=== PATIENT | male | born 1985 | race Caucasian/White ===

== ENCOUNTER 2017-04-17 03:04 | Emergency (ER) | payer SELFPAY ==
[~2017-04-17] VITALS: Ht 177.8 cm; Wt 78.4 kg
[~2017-04-17 03:04] MED LIST: CEPH500C3 PO
[2017-04-17 03:15] VITALS: BP 149/87; PULSE 97; RESP 16; TEMP 97.8; O2SAT 100
[2017-04-17 03:20] VITALS: BP 149/82; PULSE 97; RESP 16; TEMP 97.8; O2SAT 100
[2017-04-17] MEDS ORDERED: TETANUS/DIPHTHERIA TOXOID ADULT 0.5 ML VIAL IM ONE (03:45)
[2017-04-17] MEDS ORDERED: PROPARACAINE HCL 0.5% OPHT SOLN 15 ML BTL LEFT EYE ONE (03:45)
[2017-04-17] MEDS ORDERED: ERYTHROMYCIN 0.5% OPTH OINT 3.5 GM TUBO LEFT EYE ONE (04:00)
--- NOTE | 2017-04-17 04:02 | PD ---
HPI Chief Complaint: Eye Problems/Injury Time Seen by Provider: 03:43 Travel History International Travel<30 days: No Contact w/Intl Traveler<30days: No Traveled to known affect area: No History of Present Illness HPI 31-year-old male presents to the emergency department for 2-3 days of left I irritation. Patient is a contact lens wearer. Patient denies any known foreign body exposure to the left eye. Patient states wearing his contact lens seems to make his symptoms worse. Patient is not certain when his last tetanus shot was. Patient denies any allergies to medications. Patient rates his discomfort as moderate to severe. Patient did take 600 mg of ibuprofen prior to arrival to the emergency department. Patient has not seen his floral designer salesperson/ candle cutter and a year and does goes to the [facility] to have his contact lens prescription refilled. Patient states that he does not have eyeglasses. Patient states that he is currently wearing his last pair of contact lenses. Patient states that the irritation of the left eye does affect his vision. PFSH Past Medical History Narrative Medical Anxiety; tobacco use, alcohol use: Nursing notes reviewed Blood Disorders: No Anxiety: Yes Depression: No Cancer: No Cardiovascular Problems: No Diminished Hearing: No Endocrine: No Gastrointestinal Disorders: No Genitourinary: No Immune Disorder: No Musculoskeletal: No Neurologic: No Psychiatric: No Reproductive: No Respiratory: No Immunizations Current: Yes Influenza Vaccination: No Past Surgical History AICD: No Arteriovenous Shunt: No Insulin Pump: No Joint Replacement: No Pacemaker: No Other Surgery: No Social History Alcohol Use: Yes (24 beers a week) Tobacco Use: Yes (0.5PPD) Substance Use: No (denies) Allergies-Medications (Allergen,Severity, Reaction): Coded Allergies: No Known Allergies (Verified , 07/10/15) Reported Meds & Prescriptions Reported Meds & Active Scripts Active Keflex (Cephalexin Monohydrate) 500 Mg Cap 500 Mg PO Q8 Review of Systems Except as stated in HPI: all other systems reviewed are Neg Physical Exam Narrative GENERAL: Well-developed well-nourished male in no acute distress no respiratory distress; GCS 15 SKIN: Warm and dry. HEAD: Normocephalic. EYES: No scleral icterus. No injection or drainage. Left eye with injection. Left contact lens removed. No foreign body is identified. Fluorescein stain performed which shows mid cornea corneal abrasion without ulceration and no dendritic changes. Visual acuity with contact lenses right eye 20/25 left eye 20/50 both eyes 20/25. No upper or lower lid edema. NECK: Supple, trachea midline. No JVD or lymphadenopathy. Data Data Last Documented VS Vital Signs Date Time Temp Pulse Resp B/P (MAP) Pulse Ox O2 Delivery O2 Flow Rate FiO2 04/17/17 03:20 97.8 97 16 149/82 (104) 100 Orders Orders Proparacaine 0.5% Opth Soln (Alcaine 0.5 (04/17/17 03:45) Tetanus/Diphtheria Tox Adult (Tetanus/Di (04/17/17 03:45) Erythromycin 0.5% Opth Oint (Ilotycin 0. (04/17/17 04:00) Ed Discharge Order (04/17/17 03:52) Mandatory Outpatient Referral (04/17/17 03:53) MDM Medical Decision Making Medical Screen Exam Complete: Yes Emergency Medical Condition: Yes Medical Record Reviewed: Yes Differential Diagnosis Corneal abrasion, corneal ulceration, herpes virus, conjunctivitis, iritis, retained foreign body Narrative Course Fluorescein stain performed with uptake of stain in the left mid cornea no dendritic changes no ulcerations identified patient given drop of proparacaine ophthalmic drops and OINTMENT was administered to the left eye and tetanus status updated. Patient is encouraged to follow-up with candle cutter provided name of Dr. Alejandra and mandatory referral. Patient told not to put his left contact lens into his left eye again. Patient does not wear contact lens in the left eye until corneal abrasion has resolved. Diagnosis Primary Impression: Corneal abrasion, left Qualified Codes: S05.02XA - Injury of conjunctiva and corneal abrasion without foreign body, left eye, initial encounter Referrals: Local Company Refrigerated Truck Driver 1 day Manager [employer] candle cutter Dr Alejandra --call office in the AM to schedule appointment Departure Forms: Tests/Procedures, Work Release Special Instructions: no work x 1 day Additional Instructions: Do not wear contact lens in the left eye May use sunglasses to keep you from rubbing the left eye Apply eye ointment as prescribed Follow-up with candle cutter times one day; the On-call candle cutter is Dr.N Alejandra May take ibuprofen/Advil/Motrin 800 mg as often as every 8 hours OR 600 mg as often as every 6 hours for pain associated with inflammation May apply cool compresses to the eye to remove gently any drainage. Return to the emergency department for any concerns or change in condition. No work times one day Med/Other Pt SpecificInfo: Prescription(s) given Disposition: 01 DISCHARGE HOME Condition: Stable Laura Villegas MD Apr 17, 2017 04:02
== END 2017-04-17 04:31 | disposition home or self-care (01) ==
LOC: PHED 03:04
DX: S05.02XA Injury of conjunctiva and corneal abrasion without foreign body, left eye, initial encounter (principal); F17.210 Nicotine dependence, cigarettes, uncomplicated; Z72.89 Other problems related to lifestyle; Z23 Encounter for immunization
CPT/HCPCS: 90471; 90714

== ENCOUNTER 2017-06-21 10:07 | Emergency (ER) | payer SELFPAY ==
[~2017-06-21] VITALS: Ht 177.8 cm; Wt 65.0 kg
[2017-06-21 10:12] VITALS: BP 141/87; PULSE 109; RESP 18; TEMP 97.8; O2SAT 100
[2017-06-21] MEDS ORDERED: SODIUM CHLORIDE 0.9% FLUSH 10 ML FLUSH IV FLUSH PRN (10:30)
--- NOTE | 2017-06-21 10:48 | PD ---
HPI Chief Complaint: OD/ Ingestion Time Seen by Provider: 10:34 Travel History International Travel<30 days: No Contact w/Intl Traveler<30days: No Traveled to known affect area: No History of Present Illness HPI 31 y/o male presents after he was found unresponsive and given Narcan and now is awake and alert. He states yesterday morning he injected Dilaudid, meth and took Xanax. He states he does not remember going unresponsive. He states he was not trying to hurt himself. He states before this he was clean and sober for [address] He denies any current active complaints at this time. History is limited as he does not recall prior event PFSH Past Medical History Blood Disorders: No Anxiety: Yes Depression: No Cancer: No Cardiovascular Problems: No Diabetes: No Diminished Hearing: No Endocrine: No Gastrointestinal Disorders: No Genitourinary: No Immune Disorder: No Musculoskeletal: No Neurologic: No Psychiatric: No Reproductive: No Respiratory: No Immunizations Current: Yes Tetanus Vaccination: < 5 Years Influenza Vaccination: No Past Surgical History Surgical History: No Previous Surgery AICD: No Arteriovenous Shunt: No Insulin Pump: No Joint Replacement: No Pacemaker: No Other Surgery: No Social History Alcohol Use: Yes (24 beers a week) Tobacco Use: Yes (1 ) Substance Use: Yes (DILAUDID AND SUBOXONE) Allergies-Medications (Allergen,Severity, Reaction): Coded Allergies: No Known Allergies (Verified Adverse Reaction, Unknown, 06/21/17) Reported Meds & Prescriptions Reported Meds & Active Scripts Active No Active Prescriptions or Reported Medications Review of Systems Except as stated in HPI: all other systems reviewed are Neg Physical Exam Narrative GENERAL: 31-year-old male in no apparent distress SKIN: Focused skin assessment warm/dry. HEAD: Atraumatic. Normocephalic. EYES: Pupils equal and round. No scleral icterus. No injection or drainage. ENT: No nasal bleeding or discharge. Mucous membranes pink and moist. NECK: Trachea midline. No JVD. CARDIOVASCULAR: Regular rate and rhythm. No murmur appreciated. RESPIRATORY: No accessory muscle use. Clear to auscultation. Breath sounds equal bilaterally. GASTROINTESTINAL: Abdomen soft, non-tender, nondistended MUSCULOSKELETAL: No obvious deformities. No clubbing. No cyanosis. No edema. no sign of cellulitis or abscess to extremities NEUROLOGICAL: Awake and alert. No obvious cranial nerve deficits. Motor grossly within normal limits. Normal speech. PSYCHIATRIC: Appropriate mood and affect; insight and judgment normal. Data Data Last Documented VS Vital Signs Date Time Temp Pulse Resp B/P (MAP) Pulse Ox O2 Delivery O2 Flow Rate FiO2 06/21/17 14:11 88 14 125/67 (86) 97 06/21/17 12:52 Room Air 06/21/17 10:12 97.8 Orders Orders Complete Blood Count With Diff (06/21/17 10:30) Comprehensive Metabolic Panel (06/21/17 10:30) Ecg Monitoring (06/21/17 10:30) Iv Access Insert/Monitor (06/21/17 10:30) Oximetry (06/21/17 10:30) Sodium Chloride 0.9% Flush (Ns Flush) (06/21/17 10:30) Drug Screen, Random Urine (06/21/17 10:30) Alcohol (Ethanol) (06/21/17 10:30) Psych Screen (06/21/17 13:22) Sodium Chlor 0.9% 1000 Ml Inj (Ns 1000 M (06/21/17 13:30) Labs Laboratory Tests Test 06/21/17 10:51 06/21/17 11:09 White Blood Count 8.6 TH/MM3 Red Blood Count 4.14 MIL/MM3 Hemoglobin 12.8 GM/DL Hematocrit 37.2 % Mean Corpuscular Volume 89.8 FL Mean Corpuscular Hemoglobin 30.9 PG Mean Corpuscular Hemoglobin Concent 34.4 % Red Cell Distribution Width 13.0 % Platelet Count 307 TH/MM3 Mean Platelet Volume 7.4 FL Neutrophils (%) (Auto) 54.6 % Lymphocytes (%) (Auto) 31.5 % Monocytes (%) (Auto) 11.0 % Eosinophils (%) (Auto) 2.0 % Basophils (%) (Auto) 0.9 % Neutrophils # (Auto) 4.7 TH/MM3 Lymphocytes # (Auto) 2.7 TH/MM3 Monocytes # (Auto) 0.9 TH/MM3 Eosinophils # (Auto) 0.2 TH/MM3 Basophils # (Auto) 0.1 TH/MM3 CBC Comment DIFF FINAL Differential Comment Blood Urea Nitrogen 11 MG/DL Creatinine 0.75 MG/DL Random Glucose 83 MG/DL Total Protein 6.6 GM/DL Albumin 3.5 GM/DL Calcium Level 8.6 MG/DL Alkaline Phosphatase 110 U/L Aspartate Amino Transf (AST/SGOT) 18 U/L Alanine Aminotransferase (ALT/SGPT) 21 U/L Total Bilirubin 0.4 MG/DL Sodium Level 139 MEQ/L Potassium Level 3.3 MEQ/L Chloride Level 106 MEQ/L Carbon Dioxide Level 25.5 MEQ/L Anion Gap 8 MEQ/L Estimat Glomerular Filtration Rate 123 ML/MIN Ethyl Alcohol Level LESS THAN 3 MG/DL Urine Opiates Screen NEG Urine Barbiturates Screen NEG Urine Amphetamines Screen POS Urine Benzodiazepines Screen POS Urine Cocaine Screen NEG Urine Cannabinoids Screen NEG MDM Medical Decision Making Medical Screen Exam Complete: Yes Emergency Medical Condition: Yes Medical Record Reviewed: Yes (Past history confirmed) Interpretation(s) CBC & BMP Diagram 06/21/17 10:51 Total Protein 6.6, Albumin 3.5, Calcium Level 8.6, Alkaline Phosphatase 110, Aspartate Amino Transf (AST/SGOT) 18, Alanine Aminotransferase (ALT/SGPT) 21, Total Bilirubin 0.4 Differential Diagnosis Overdose, co-ingestion, electrolyte Narrative Course We will check blood work and monitor 1320 heart rate 115, will dose with ivf, patient states history of SI but none today, agrees to voluntarily talk with our psychiatry team heart rate improved after ivf, medically cleared for psychiatry team to talk with patient Diagnosis Primary Impression: Overdose Qualified Codes: T50.901A - Poisoning by unspecified drugs, medicaments and biological substances, accidental (unintentional), initial encounter Scripts No Active Prescriptions or Reported Meds Micaela Hager MD Jun 21, 2017 10:48
[2017-06-21 11:21] LABS: AUTOMATED NEUTROPHIL # 4.7 TH/MM3 (1.8-7.7); BASOPHIL # 0.1 TH/MM3 (0-0.2); BASOPHIL % 0.9 % (0.0-2.0); EOSINOPHIL # 0.2 TH/MM3 (0-0.4); HEMATOCRIT 37.2 % (39.0-51.0); HEMOGLOBIN 12.8 GM/DL (13.0-17.0); LYMPH % 31.5 % (9.0-44.0); LYMPHOCYTE # 2.7 TH/MM3 (1.0-4.8); MEAN CELL VOLUME 89.8 FL (80.0-100.0); MEAN CORPUSCULAR HEMOGLOBIN 30.9 PG (27.0-34.0); MEAN CORPUSCULAR HGB CONC 34.4 % (32.0-36.0); MEAN PLATELET VOLUME 7.4 FL (7.0-11.0); MONOCYTE # 0.9 TH/MM3 (0-0.9); NEUT % 54.6 % (16.0-70.0); PLATELET COUNT 307 TH/MM3 (150-450); RED BLOOD COUNT 4.14 MIL/MM3 (4.50-5.90); WHITE BLOOD COUNT 8.6 TH/MM3 (4.0-11.0)
[2017-06-21 11:36] LABS: ALBUMIN 3.5 GM/DL (3.4-5.0); ALT (GPT) 21 U/L (12-78); AST (GOT) 18 U/L (15-37); BICARBONATE 25.5 MEQ/L (21.0-32.0); BLOOD UREA NITROGEN 11 MG/DL (7-18); CALCIUM 8.6 MG/DL (8.5-10.1); CHLORIDE 106 MEQ/L (98-107); CREATININE 0.75 MG/DL (0.60-1.30); GLOMERULAR FILTRATION RATE 123 ML/MIN (>89); GLUCOSE,RANDOM 83 MG/DL (74-106); SODIUM (NA) 139 MEQ/L (136-145)
[2017-06-21 11:37] LABS: ALKALINE PHOSPHATASE 110 U/L (45-117); TOTAL BILIRUBIN ADULT 0.4 MG/DL (0.2-1.0); TOTAL PROTEIN 6.6 GM/DL (6.4-8.2)
[2017-06-21 12:52] VITALS: BP 129/87; PULSE 113; RESP 21; O2SAT 98
[2017-06-21] MEDS ORDERED: SODIUM CHLOR 0.9% 1000 ML INJ 1,000 ML IV ONE (13:30)
[2017-06-21 14:11] VITALS: BP 125/67; PULSE 88; RESP 14; O2SAT 97
--- NOTE | 2017-06-21 15:30 | PD ---
History of Present Illness Chief Complaint: Substance abuse Time Seen by Provider: 15:05 Travel History International Travel<30 Days: No Contact w/Intl Traveler<30days: No Known affected area: No Legal Status Legal Status: Voluntary History of Present Illness: Mr. Bennett is a 31 year old single, male who was brought into the emergency department for a drug overdose. He reports that he had injected methadone, Xanax and Dilaudid yesterday. Psychiatric examination was requested by the ED physician. He denies thoughts of self-harm, homicidal ideation, auditory or visual hallucinations, and does not appear delusional. Patient has been seen in this facility previously for substance abuse. Reviewed electronic medical record and discussed case with staff. Patient was examined in the ED main. Patient's awake alert and oriented. Ambulating without difficulty. Speech is clear and logical. He is a slender white male with multiple tattoos who is well groomed. Patient is future oriented as he states that he "needs to get to work". He reports history of IV drug use. Advises that he completed drug court 3 months ago. Denies history of mental illness. Denies previous suicide attempts. [facility] Past Medical History Narrative Medical Medically evaluated by ED. Blood Disorders: No Anxiety: Yes Depression: No Cancer: No Cardiovascular Problems: No Diabetes: No Diminished Hearing: No Endocrine: No Gastrointestinal Disorders: No Genitourinary: No Immune Disorder: No Musculoskeletal: No Neurologic: No Psychiatric: No Reproductive: No Respiratory: No Immunizations Current: Yes Tetanus Vaccination: < 5 Years Influenza Vaccination: No Past Surgical History Surgical History: No Previous Surgery AICD: No Arteriovenous Shunt: No Insulin Pump: No Joint Replacement: No Pacemaker: No Other Surgery: No Psychiatric History Psychiatric History Denies inpatient admission and outpatient treatment for mental health issues. History of Inpatient Treatment: No Guns or firearms in home: No Social History Works at a local [employer] States that at this time he is residing with different friends. Hx Alcohol Use: Yes (24 beers a week) Hx Tobacco Use: Yes (1 ) Hx Substance Use: Yes (DILAUDID AND SUBOXONE) Substance Use Type: Amphetamines-Stimulants, Prescription Medications Hx of Substance Use Treatment: Yes Family Psychiatric History Denies familial mental illness or suicide attempts. Allergies-Medications (Allergen,Severity, Reaction): Coded Allergies: No Known Allergies (Verified Adverse Reaction, Unknown, 06/21/17) Reported Meds & Prescriptions Reported Meds & Active Scripts Active No Active Prescriptions or Reported Medications Mental Status Examination Appearance: Appropriate, Well dressed/well groomed Consciousness: Alert Orientation: x4 Motor Activity: Normal gait Speech: Unremarkable Language: Adequate Fund of Knowledge: Adequate Attention and Concentration: Adequate Memory: Unremarkable Mood: Appropriate Affect: Appropriate Thought Process & Associations: Intact Thought Content: Appropriate Hallucination Type: None Delusion Type: None Suicidal Ideation: No Suicidal Plan: No Suicidal Intention: No Homicidal Ideation: No Homicidal Plan: No Homicidal Intention: No Insight: Adequate Judgment: Adequate MDM Medical Decision Making Medical Record Reviewed: Yes Assessment/Plan 31-year-old single, , male brought in by EVAC to the emergency department for a drug overdose. Patient denies suicidal ideations, homicidal ideations, auditory or visual hallucinations, and does not appear delusional. Does not meet criteria for inpatient admission at this time. Patient provided with outpatient resources for substance abuse addiction. Advised to follow-up tomorrow. Patient states understanding and indicates a willingness to comply. Request HC Surrog/Guard Advoc?: No Orders Orders Complete Blood Count With Diff (06/21/17 10:30) Comprehensive Metabolic Panel (06/21/17 10:30) Ecg Monitoring (06/21/17 10:30) Iv Access Insert/Monitor (06/21/17 10:30) Oximetry (06/21/17 10:30) Sodium Chloride 0.9% Flush (Ns Flush) (06/21/17 10:30) Drug Screen, Random Urine (06/21/17 10:30) Alcohol (Ethanol) (06/21/17 10:30) Psych Screen (06/21/17 13:22) Sodium Chlor 0.9% 1000 Ml Inj (Ns 1000 M (06/21/17 13:30) Results Vital Signs Date Time Temp Pulse Resp B/P (MAP) Pulse Ox O2 Delivery O2 Flow Rate FiO2 06/21/17 14:11 88 14 125/67 (86) 97 06/21/17 12:52 113 21 129/87 (101) 98 Room Air 2/23/18 10:25 94 18 100 Room Air 06/21/17 10:12 97.8 109 18 141/87 (105) 100 Laboratory Tests Test 06/21/17 10:51 06/21/17 11:09 White Blood Count 8.6 Red Blood Count 4.14 Hemoglobin 12.8 Hematocrit 37.2 Mean Corpuscular Volume 89.8 Mean Corpuscular Hemoglobin 30.9 Mean Corpuscular Hemoglobin Concent 34.4 Red Cell Distribution Width 13.0 Platelet Count 307 Mean Platelet Volume 7.4 Neutrophils (%) (Auto) 54.6 Lymphocytes (%) (Auto) 31.5 Monocytes (%) (Auto) 11.0 Eosinophils (%) (Auto) 2.0 Basophils (%) (Auto) 0.9 Neutrophils # (Auto) 4.7 Lymphocytes # (Auto) 2.7 Monocytes # (Auto) 0.9 Eosinophils # (Auto) 0.2 Basophils # (Auto) 0.1 CBC Comment DIFF FINAL Differential Comment Blood Urea Nitrogen 11 Creatinine 0.75 Random Glucose 83 Total Protein 6.6 Albumin 3.5 Calcium Level 8.6 Alkaline Phosphatase 110 Aspartate Amino Transf (AST/SGOT) 18 Alanine Aminotransferase (ALT/SGPT) 21 Total Bilirubin 0.4 Sodium Level 139 Potassium Level 3.3 Chloride Level 106 Carbon Dioxide Level 25.5 Anion Gap 8 Estimat Glomerular Filtration Rate 123 Ethyl Alcohol Level LESS THAN 3 Urine Opiates Screen NEG Urine Barbiturates Screen NEG Urine Amphetamines Screen POS Urine Benzodiazepines Screen POS Urine Cocaine Screen NEG Urine Cannabinoids Screen NEG Diagnosis Primary Impression: Substance abuse Psychiatrically Cleared: Yes Prescriptions No Active Prescriptions or Reported Saurabhs Barbara Fu Jun 21, 2017 15:30
== END 2017-06-21 15:53 | disposition home or self-care (01) ==
LOC: NEPC 10:07
DX: F15.10 Other stimulant abuse, uncomplicated (principal); F19.10 Other psychoactive substance abuse, uncomplicated; F41.9 Anxiety disorder, unspecified; Z72.0 Tobacco use
CPT/HCPCS: 80053; 80307; 85025; 96360; 99284; J7030

== ENCOUNTER 2017-06-24 19:09 | Emergency (ER) | payer SELFPAY ==
[~2017-06-24] VITALS: Ht 177.8 cm; Wt 72.0 kg
[2017-06-24 19:34] VITALS: BP 150/76; PULSE 63; RESP 18; TEMP 97.5; O2SAT 100
[2017-06-24] MEDS ORDERED: CLINDAMYCIN PHOS 600 MG/4 ML VIAL IM ONE (19:45)
--- NOTE | 2017-06-24 19:52 | PD ---
HPI Chief Complaint: Head Injury Time Seen by Provider: 19:39 Travel History International Travel<30 days: No Contact w/Intl Traveler<30days: No Traveled to known affect area: No History of Present Illness HPI 31-year-old male that presents to the ED for evaluation of head injury as well as left leg infection. Patient has had this leg infection for about 3 days now. Per patient is becoming more swollen. Per patient is red and tender. Per patient he denies any injury to the area. He does have a history of IV drug use. He was actually seen here for 3 days ago for overdose. States that today while walking he tripped and hit his head. He denies losing consciousness but states that he did hit on the head will come off. He denies any urinary or bowel movement issues. No fevers chills or sweats. Patient came here by ambulance for evaluation of this. Patient was brought to the triage from there. He denies any blurry vision or double vision. He states using IV drugs. Denies any other medical issues. Per patient he "passed out" today because he didn't eat but cannot remember what happened. per patient he hit his head which "woke him up". Denies any allergies to medication. No other medical issues. Pain is 3/10 on the left leg. PFSH Past Medical History Blood Disorders: No Anxiety: Yes Depression: No Cancer: No Cardiovascular Problems: No Diabetes: No Diminished Hearing: No Endocrine: No Gastrointestinal Disorders: No Genitourinary: No Immune Disorder: No Musculoskeletal: No Neurologic: No Psychiatric: No Reproductive: No Respiratory: No Immunizations Current: Yes ?: Not Past Surgical History AICD: No Arteriovenous Shunt: No Insulin Pump: No Joint Replacement: No Pacemaker: No Other Surgery: No Social History Alcohol Use: Yes (24 beers a week) Tobacco Use: Yes (1 ) Substance Use: Yes (DILAUDID AND SUBOXONE) Allergies-Medications (Allergen,Severity, Reaction): Coded Allergies: No Known Allergies (Verified Adverse Reaction, Unknown, 06/21/17) Reported Meds & Prescriptions Reported Meds & Active Scripts Active No Active Prescriptions or Reported Medications Review of Systems Except as stated in HPI: all other systems reviewed are Neg Physical Exam Narrative GENERAL: SKIN: Warm and dry. Patient has never edema and swelling noted on the left leg compared to the right. 2+ pulses bilaterally. Slightly warm to the touch. HEAD: Atraumatic. Normocephalic. Patient has a superficial cut to his right eyebrow. EYES: Pupils equal and round 4 mm reactive to light and accommodation. No scleral icterus. No injection or drainage. ENT: No nasal bleeding or discharge. Mucous membranes pink and moist. Tongue is midline. No uvula deviation. NECK: Trachea midline. No JVD. CARDIOVASCULAR: Regular rate and rhythm. No murmurs, S3, S4. RESPIRATORY: No accessory muscle use. Clear to auscultation. Breath sounds equal bilaterally. GASTROINTESTINAL: Abdomen soft, non-tender, nondistended. Hepatic and splenic margins not palpable. MUSCULOSKELETAL: Extremities without clubbing, cyanosis, or edema. No obvious deformities. Full range of motion of the upper and lower extremities bilaterally. 2+ pulses bilaterally. NEUROLOGICAL: Awake and alert. No obvious cranial nerve deficits. Motor grossly within normal limits. Five out of 5 muscle strength in the arms and legs. Normal speech. PSYCHIATRIC: Appropriate mood and affect; insight and judgment normal. Data Data Last Documented VS Vital Signs Date Time Temp Pulse Resp B/P (MAP) Pulse Ox O2 Delivery O2 Flow Rate FiO2 06/24/17 19:34 97.5 63 18 150/76 (100) 100 Orders Orders Clindamycin Inj (Cleocin Inj) (06/24/17 19:45) Ct Brain W/O Iv Contrast(Rout) (06/24/17 19:43) Electrocardiogram (06/24/17 19:51) Complete Blood Count With Diff (06/24/17 19:51) Comprehensive Metabolic Panel (06/24/17 19:51) Ckmb (Isoenzyme) Profile (06/24/17 19:51) Troponin I (06/24/17 19:51) Magnesium (Mg) (06/24/17 19:51) Thyroid Stimulating Hormone (06/24/17 19:51) Us Leg Venous Doppler (06/24/17 ) Clindamycin 600 Mg/Ns Premix (Cleocin 60 (06/24/17 20:00) MDM Medical Decision Making Medical Screen Exam Complete: Yes Emergency Medical Condition: Yes Medical Record Reviewed: Yes Differential Diagnosis Cellulitis versus head injury versus syncope versus presyncope Narrative Course 31-year-old male that presents to the ED for evaluation of head injury and cellulitis. Patient was properly examined and was found to have signs and symptoms of unclear etiology. Patient does appear to have several areas the left leg. Unclear as to the reason he loss consciousness. Recommendation at this time is labs and imaging. Case will be signed out to my attending Dr Paulino pending treatment plan and disposition. Scripts No Active Prescriptions or Reported Meds Neto Fuentes Jun 24, 2017 19:52
[2017-06-24] MEDS ORDERED: CLINDAMYCIN 600 MG/NS PREMIX 50 ML IV ONE (20:00)
--- NOTE | 2017-06-24 20:20 | RADRPT ---
EXAM DATE/TIME: 06/24/2017 19:58 [facility] COMPARISON: No previous studies available for comparison. INDICATIONS : Syncope. Frontal laceration. RADIATION DOSE: 60.20 CTDIvol (mGy) MEDICAL HISTORY : None SURGICAL HISTORY : None. ENCOUNTER: Initial ACUITY: 1 day PAIN SCALE: 3/10 LOCATION: Bilateral frontal TECHNIQUE: Multiple contiguous axial images were obtained of the head. Using automated exposure control and adj ustment of the mA and/or kV according to patient size, radiation dose was kept as low as reasonably a chievable to obtain optimal diagnostic quality images. DICOM format image data is available electro nically for review and comparison. FINDINGS: CEREBRUM: The ventricles are normal for age. No evidence of midline shift, mass lesion, hemorrhage or acute in farction. No extra-axial fluid collections are seen. POSTERIOR FOSSA: The cerebellum and brainstem are intact. The 4th ventricle is midline. The cerebellopontine angle i s unremarkable. EXTRACRANIAL: The visualized portion of the orbits is intact. SKULL: The calvaria is intact. No evidence of skull fracture. CONCLUSION: Normal examination for a patient of this age. Jewel Serrano MD on June 24, 2017 at 20:18 Board Certified Radiologist. This report was verified electronically.
[2017-06-24 21:11] LABS: CHLORIDE 103 MEQ/L (98-107); SODIUM (NA) 139 MEQ/L (136-145)
[2017-06-24 21:14] LABS: CALCIUM 8.4 MG/DL (8.5-10.1)
[2017-06-24 21:15] LABS: ALBUMIN 3.8 GM/DL (3.4-5.0); BICARBONATE 27.7 MEQ/L (21.0-32.0); BLOOD UREA NITROGEN 13 MG/DL (7-18); GLUCOSE,RANDOM 83 MG/DL (74-106); MAGNESIUM 2.4 MG/DL (1.5-2.5)
[2017-06-24 21:18] LABS: ALT (GPT) 21 U/L (12-78); AST (GOT) 15 U/L (15-37); AUTOMATED NEUTROPHIL # 4.6 TH/MM3 (1.8-7.7); BASOPHIL # 0.1 TH/MM3 (0-0.2); BASOPHIL % 1.8 % (0.0-2.0); EOSINOPHIL # 0.2 TH/MM3 (0-0.4); EOSINOPHIL % 2.6 % (0.0-4.0); GLOMERULAR FILTRATION RATE 114 ML/MIN (>89); HEMATOCRIT 38.9 % (39.0-51.0); HEMOGLOBIN 13.1 GM/DL (13.0-17.0); LYMPH % 26.1 % (9.0-44.0); LYMPHOCYTE # 2.1 TH/MM3 (1.0-4.8); MEAN CELL VOLUME 90.4 FL (80.0-100.0); MEAN CORPUSCULAR HEMOGLOBIN 30.4 PG (27.0-34.0); MEAN CORPUSCULAR HGB CONC 33.6 % (32.0-36.0); MEAN PLATELET VOLUME 7.3 FL (7.0-11.0); MONO % 12.6 % (0.0-8.0); NEUT % 56.9 % (16.0-70.0); PLATELET COUNT 283 TH/MM3 (150-450); RED CELL DISTRIBUTION WIDTH 12.2 % (11.6-17.2)
[2017-06-24 21:19] LABS: TOTAL BILIRUBIN ADULT 0.4 MG/DL (0.2-1.0); TOTAL PROTEIN 6.8 GM/DL (6.4-8.2)
[2017-06-24 21:21] LABS: ALKALINE PHOSPHATASE 131 U/L (45-117)
[2017-06-24 21:23] LABS: TROPONIN I LESS THAN 0.02 NG/ML (0.02-0.05)
--- NOTE | 2017-06-24 22:14 | RADRPT ---
EXAM DATE/TIME: 06/25/2017 02:19 [facility] COMPARISON: No previous studies available for comparison. INDICATIONS : Left leg swelling. MEDICAL HISTORY : Contacts. Anxiety. Substance use. Alcohol use. SURGICAL HISTORY : None. ENCOUNTER: Initial ACUITY: 1 week PAIN SCORE: 5/10 LOCATION: Left leg. TECHNIQUE: Venous ultrasound of the leg was performed from the inguinal ligament to the proximal calf. Real-nam e, color Doppler and spectral tracing, compression and augmentation techniques were used. FINDINGS: There is normal compressibility of the deep venous system from the inguinal region to the proximal ca lf. No echogenic clot is seen in the lumen of the common femoral, femoral, popliteal, and posterior tibial veins. There is a normal response of the venous system to proximal and distal augmentation an d respiration. CONCLUSION: Normal examination. Jewel Serrano MD on June 24, 2017 at 22:13 Board Certified Radiologist. This report was verified electronically.
[2017-06-24] MEDS ORDERED: BACT800T5 PO (22:32)
--- NOTE | 2017-06-24 22:33 | PD ---
Physical Exam Time Seen by Provider: 22:23 Narrative The physician medical assistant instructor left this patient with me to check the ultrasound, CT of the brain and laboratory and make a disposition, likely discharge. Data Data Last Documented VS Vital Signs Date Time Temp Pulse Resp B/P (MAP) Pulse Ox O2 Delivery O2 Flow Rate FiO2 06/24/17 19:34 97.5 63 18 150/76 (100) 100 Orders Orders Clindamycin Inj (Cleocin Inj) (06/24/17 19:45) Ct Brain W/O Iv Contrast(Rout) (06/24/17 19:43) Electrocardiogram (06/24/17 19:51) Complete Blood Count With Diff (06/24/17 19:51) Comprehensive Metabolic Panel (06/24/17 19:51) Ckmb (Isoenzyme) Profile (06/24/17 19:51) Troponin I (06/24/17 19:51) Magnesium (Mg) (06/24/17 19:51) Thyroid Stimulating Hormone (06/24/17 19:51) Us Leg Venous Doppler (06/24/17 ) Clindamycin 600 Mg/Ns Premix (Cleocin 60 (06/24/17 20:00) Labs Laboratory Tests Test 06/24/17 20:55 White Blood Count 8.0 TH/MM3 Red Blood Count 4.30 MIL/MM3 Hemoglobin 13.1 GM/DL Hematocrit 38.9 % Mean Corpuscular Volume 90.4 FL Mean Corpuscular Hemoglobin 30.4 PG Mean Corpuscular Hemoglobin Concent 33.6 % Red Cell Distribution Width 12.2 % Platelet Count 283 TH/MM3 Mean Platelet Volume 7.3 FL Neutrophils (%) (Auto) 56.9 % Lymphocytes (%) (Auto) 26.1 % Monocytes (%) (Auto) 12.6 % Eosinophils (%) (Auto) 2.6 % Basophils (%) (Auto) 1.8 % Neutrophils # (Auto) 4.6 TH/MM3 Lymphocytes # (Auto) 2.1 TH/MM3 Monocytes # (Auto) 1.0 TH/MM3 Eosinophils # (Auto) 0.2 TH/MM3 Basophils # (Auto) 0.1 TH/MM3 CBC Comment DIFF FINAL Differential Comment Blood Urea Nitrogen 13 MG/DL Creatinine 0.80 MG/DL Random Glucose 83 MG/DL Total Protein 6.8 GM/DL Albumin 3.8 GM/DL Calcium Level 8.4 MG/DL Magnesium Level 2.4 MG/DL Alkaline Phosphatase 131 U/L Aspartate Amino Transf (AST/SGOT) 15 U/L Alanine Aminotransferase (ALT/SGPT) 21 U/L Total Bilirubin 0.4 MG/DL Sodium Level 139 MEQ/L Potassium Level 3.7 MEQ/L Chloride Level 103 MEQ/L Carbon Dioxide Level 27.7 MEQ/L Anion Gap 8 MEQ/L Estimat Glomerular Filtration Rate 114 ML/MIN Total Creatine Kinase 74 U/L Troponin I LESS THAN 0.02 NG/ML Thyroid Stimulating Hormone 3rd Gen 0.521 uIU/ML [facility] Medical Record Reviewed: Yes Supervised Visit with VINH: Yes Interpretation(s) The EKG shows sinus rhythm with a rate of [address] elevation or depression. The EKG is completely normal. The CT of the brain is normal. The CBC is normal. The complete metabolic profile shows a calcium of 8.4 and alkaline phosphatase of 131 but is otherwise unremarkable. The cardiac enzymes are normal and the TSH is normal. The ultrasound is normal. Differential Diagnosis Cellulitis, deep vein thrombosis, acute coronary syndrome, electrolyte disorder Narrative Course The patient has cellulitis in his left leg. He does not have insurance and he likely cannot afford clindamycin. He will be given Septra DS since that is free at [facility]. He needs to elevate his legs above his heart. He needs to follow-up with a primary care physician this week or early next week. He should return to emergency department if worse. He should discontinue alcohol and recreational drugs. Diagnosis Primary Impression: Cellulitis of left leg Additional Instruction: Discontinue alcohol and recreational drugs. Elevate your leg above your heart. The antibiotic is one tablet twice daily for 10 days. Follow-up with a primary care physician this week or early next week. Return to emergency department if worse. Med/Other Pt SpecificInfo: Prescription(s) given Scripts Sulfamethoxazole-Trimethoprim (Bactrim DS) 800-160 Mg Tab 1 TAB PO BID for Infection, #20 TAB 0 Refills Prov: Anselmo Paulino MD 06/24/17 Disposition: 01 DISCHARGE HOME Condition: Stable Anselmo Paulino MD Jun 24, 2017 22:33
[2017-06-24] MEDS ORDERED: SULFAMETHOXAZOLE-TRIMETHOPRIM DS 800-160 MG TAB PO ONE (22:45)
--- NOTE | 2017-06-25 22:33 | EKG ---
Date Performed: 06/24/2017 Time Performed: 20:23:41 PTAGE: 31 years EKG: Sinus rhythm NORMAL ECG PREVIOUS TRACING : 07/27/2006 05.03 Compared to prior tracing, rate slower DOCTOR: Julissa Barillas Interpretating Date/Time 06/25/2017 22:32:32
== END 2017-06-24 22:47 | disposition home or self-care (01) ==
LOC: PHEFT 19:09
DX: L03.116 Cellulitis of left lower limb (principal); M79.89 Other specified soft tissue disorders; F19.90 Other psychoactive substance use, unspecified, uncomplicated; S09.90XA Unspecified injury of head, initial encounter; W01.0XXA Fall on same level from slipping, tripping and stumbling without subsequent striking against object, initial encounter; Y93.01 Activity, walking, marching and hiking; Z72.0 Tobacco use
CPT/HCPCS: 70450; 80053; 82550; 83735; 84443; 84484; 85025; 93005; 93971; 96365; 96372

== ENCOUNTER 2017-09-01 19:12 | Emergency (ER) | payer SELFPAY, BC ==
[2017-09-01 20:38] LABS: BILIRUBIN, URINE NEG (NEG); BLOOD, URINE NEG (NEG); GLUCOSE,URINE 100 mg/dL (NEG); KETONE, URINE NEG (NEG); NITRITE,URINE NEG (NEG); URINE COLOR YELLOW (YELLW/STRAW); URINE LEUKOCYTE ESTERASE NEG (NEG)
[2017-09-01 20:42] LABS: COMMENT (UR) CULT NOT INDICATED; CULTURE IF INDICATED CULT NOT INDICATED; RBC, URINE 0-2 /hpf (0-3); SQUAMOUS EPITHELIAL CELL URINE 0-5 /hpf (0-5); WBC, URINE 0-2 /hpf (0-5)
[2017-09-01 20:47] LABS: AMPHETAMINE, URINE POS (NEG); BARBITURATES, URINE NEG (NEG); BENZODIAZEPINE,URINE POS (NEG); CANNABINOIDS, URINE NEG (NEG); COCAINE, URINE NEG (NEG)
[2017-09-01 21:19] LABS: AUTOMATED NEUTROPHIL # 3.2 TH/MM3 (1.8-7.7); BASOPHIL % 0.8 % (0.0-2.0); EOSINOPHIL # 0.2 TH/MM3 (0-0.4); EOSINOPHIL % 3.7 % (0.0-4.0); HEMATOCRIT 41.1 % (39.0-51.0); HEMO FLAGS DIFF FINAL; HEMOGLOBIN 14.1 GM/DL (13.0-17.0); LYMPHOCYTE # 1.5 TH/MM3 (1.0-4.8); MEAN CELL VOLUME 87.5 FL (80.0-100.0); MEAN CORPUSCULAR HEMOGLOBIN 29.9 PG (27.0-34.0); MEAN CORPUSCULAR HGB CONC 34.2 % (32.0-36.0); MEAN PLATELET VOLUME 6.8 FL (7.0-11.0); MONO % 15.7 % (0.0-8.0); MONOCYTE # 0.9 TH/MM3 (0-0.9); NEUT % 54.8 % (16.0-70.0); PLATELET COUNT 244 TH/MM3 (150-450); RED CELL DISTRIBUTION WIDTH 11.6 % (11.6-17.2); WHITE BLOOD COUNT 5.8 TH/MM3 (4.0-11.0)
[2017-09-01 21:26] LABS: CHLORIDE 108 MEQ/L (98-107); POTASSIUM 3.4 MEQ/L (3.5-5.1); SODIUM (NA) 140 MEQ/L (136-145)
[2017-09-01 21:30] LABS: ALBUMIN 3.1 GM/DL (3.4-5.0); ANION GAP 5 MEQ/L (5-15); BICARBONATE 26.8 MEQ/L (21.0-32.0); BLOOD UREA NITROGEN 6 MG/DL (7-18); CALCIUM 8.4 MG/DL (8.5-10.1); GLUCOSE,RANDOM 85 MG/DL (74-106)
[2017-09-01 21:33] LABS: ALT (GPT) 23 U/L (12-78); AST (GOT) 15 U/L (15-37); CREATININE 0.79 MG/DL (0.60-1.30); GLOMERULAR FILTRATION RATE 116 ML/MIN (>89)
[2017-09-01 21:35] LABS: TOTAL BILIRUBIN ADULT 0.3 MG/DL (0.2-1.0); TOTAL PROTEIN 6.4 GM/DL (6.4-8.2)
[2017-09-01 21:36] LABS: ALKALINE PHOSPHATASE 108 U/L (45-117)
[2017-09-01] MEDS: SULFAMETHOXAZOLE-TRIMETHOPRIM DS 800-160 MG TAB PO (21:48)
[2017-09-01] MEDS: DOXYCYCLINE HYCLATE 100 MG CAP PO (21:48)
== END 2017-09-01 21:58 | disposition home or self-care (01) ==
LOC: PHED 19:12
DX: L03.116 Cellulitis of left lower limb (principal); F15.10 Other stimulant abuse, uncomplicated; F19.10 Other psychoactive substance abuse, uncomplicated; F41.9 Anxiety disorder, unspecified; F17.200 Nicotine dependence, unspecified, uncomplicated; Z79.899 Other long term (current) drug therapy
CPT/HCPCS: 80053; 80307; 81001; 85025; 93971; 99284-25